=== PATIENT | female | born 1995 | race Caucasian/White ===

== ENCOUNTER 2017-11-06 11:11 | Inpatient (IN) | payer BC ==
[2017-11-06] MEDS ORDERED: Metoclopramide 10 MG/2 ML SDV IVPUSH ONE (11:49)
[2017-11-06] MEDS ORDERED: ceFAZolin 2 GM in Premix Bag 1 BAG IV ONE (11:49)
[2017-11-06] MEDS ORDERED: Sodium Chloride 0.9% 10 ML Syringe FLUSH PRN (11:49)
[2017-11-06] MEDS ORDERED: Citric Acid/Sodium Citrate Solution 30 ML Cup PO ONE (11:49)
[2017-11-06] MEDS ORDERED: Oxytocin/Lactated Ringers 10 UNIT/1,000 ML BAG IV SCH (12:00)
--- NOTE | 2017-11-06 13:51 | PCM.PREANE ---
Preanesthetic Assessment - Anesthesia/Transfusion/Family Hx Anesthesia History: Prior Anesthesia Without Reaction Family History of Anesthesia Reaction: No Transfusion History: No Prior Transfusion(s) - Review of Systems General: Fatigue Pulmonary: No Symptoms Cardiovascular: Dyspnea on Exertion Gastrointestinal: No Symptoms Neurological: No Symptoms Other: Reports: None - Physical Assessment NPO Status Date: 11/06/17 NPO Status Time: 06:00 Pulse: 91 O2 Sat by Pulse Oximetry: 97 Respiratory Rate: 14 Blood Pressure: 121/58 Temperature: 36.3 C Height: 1.63 m Weight: 78.834 kg ASA Class: 2 Mental Status: Alert & Oriented x3 Airway Class: Mallampati = 1 Dentition: Reports: Normal Dentition Thyro-Mental Finger Breadths: 3 Mouth Opening Finger Breadths: 3 ROM/Head Extension: Full Lungs: Clear to Auscultation, Normal Respiratory Effort Cardiovascular: Regular Rate, Regular Rhythm, No Murmurs - Lab Values: Laboratory Last Values WBC 12.49 K/mm3 (3.98-10.04) H 11/06/17 12:10 RBC 4.13 M/mm3 (3.98-5.22) 11/06/17 12:10 Hgb 9.8 gm/L (11.2-15.7) L 11/06/17 12:10 Hct 31.3 % (34.1-44.9) L 11/06/17 12:10 MCV 75.8 fl (79.4-94.8) L 11/06/17 12:10 MCH 23.7 pg (25.6-32.2) L 11/06/17 12:10 MCHC 31.3 g/dl (32.2-35.5) L 11/06/17 12:10 RDW Std Deviation 42.6 fL (36.4-46.3) 11/06/17 12:10 Plt Count 221 K/mm3 (182-369) 11/06/17 12:10 MPV 9.8 fl (9.4-12.3) 11/06/17 12:10 Neut % (Auto) 76.7 % (34.0-71.1) H 11/06/17 12:10 Lymph % (Auto) 16.1 % (19.3-51.7) L 11/06/17 12:10 [place] % (Auto) 5.6 % (4.7-12.5) 11/06/17 12:10 Eos % (Auto) 0.4 (0.7-5.8) L 11/06/17 12:10 Baso % (Auto) 0.2 % (0.1-1.2) 11/06/17 12:10 Neut # (Auto) 9.58 K/mm3 (1.56-6.13) H 11/06/17 12:10 Lymph # (Auto) 2.01 K/mm3 (1.18-3.74) 11/06/17 12:10 [place] # (Auto) 0.70 K/mm3 (0.24-0.36) H 11/06/17 12:10 Eos # (Auto) 0.05 K/mm3 (0.04-0.36) 11/06/17 12:10 Baso # (Auto) 0.03 K/mm3 (0.01-0.08) 11/06/17 12:10 Manual Slide Review Abnormal smear 11/06/17 12:10 Blood Type O POSITIVE 11/06/17 12:10 Gel Antibody Screen Negative 11/06/17 12:10 - Allergies Allergies/Adverse Reactions: Allergies Allergy/AdvReac Type Severity Reaction Status Date / Time fexofenadine [From Lexis] Allergy Rash Verified 10/22/17 20:28 - Anesthesia Plan Pre-Op Medication Ordered: Antacids - Acknowledgements Anesthesia Type Planned: Spinal Pt an Appropriate Candidate for the Planned Anesthesia: Yes Alternatives and Risks of Anesthesia Discussed w Pt/Guardian: Yes Pt/Guardian Understands and Agrees with Anesthesia Plan: Yes PreAnesthesia Questionnaire Respiratory History: Reports: Asthma Gastrointestinal History: Reports: GERD NURSE SPECIALIST History: Reports: - Past Surgical History HEENT Surgical History: Reports: Oral Surgery Female Surgical History: Reports: Section - CURRENT (IN HOUSE) MEDS Current Meds: Current Medications Lactated Ringer's (Ringers, Lactated) 1,000 mls @ 125 mls/hr IV ASDIRECTED ROSA Oxytocin/Lactated Ringer's (Pitocin In Lr 10 Units/1,000 Ml) 10 unit in 1,000 mls @ 100 mls/hr IV ASDIRECTED ROSA Sodium Chloride (Saline Flush) 10 ml FLUSH ASDIRECTED PRN PRN Reason: Keep Vein Open Discontinued Medications Citric Acid/Sodium Citrate (Bicitra Solution) 30 ml PO ONETIME ONE Stop: 11/06/17 11:50 Cefazolin Sodium/Dextrose 2 gm (/ Premix) 50 mls @ 100 mls/hr IV ONETIME ONE Stop: 11/06/17 12:18 Metoclopramide HCl (Reglan) 10 mg IVPUSH ONETIME ONE Stop: 11/06/17 11:50
[2017-11-06] MEDS ORDERED: ceFAZolin 1 GM Vial ONE (14:01)
[2017-11-06] MEDS ORDERED: Phenylephrine 1% 10 MG/ML SDV ONE (14:01)
[2017-11-06] MEDS ORDERED: Morphine PF 10 MG/10 ML SDV ONE (14:01)
[2017-11-06] MEDS ORDERED: Metoclopramide 10 MG/2 ML SDV ONE (14:40)
[2017-11-06] MEDS ORDERED: Citric Acid/Sodium Citrate Solution 30 ML Cup ONE (14:41)
[2017-11-06] MEDS: Lactated Ringers 1,000 ML IV SCH ×4 (14:56→21:09)
[2017-11-06] MEDS ORDERED: Bupivacaine 0.5% 30 ML SDV ONE (15:48)
--- NOTE | 2017-11-06 16:42 | PCM.SN ---
- Free Text/Narrative Note: 1632 Patient is a at 37 5/7 wks. Assuming care from Dr. Lala. Patient with history of vaginal delivery in 1st after IOL for gestational HTN. Had a with her 2nd after FTP in 2nd stage and also gestational HTN. Was seen in clinic today with elevated BP's noted. Sent to L& D and initially had planned on moving towards RLTCS, but began laboring and is now 4 cm. Elected for TOLAC. AROM done by Dr. Lala. Will continue present management. Pain control per patient preference. Anticipate Sravani Johnston MD
--- NOTE | 2017-11-06 19:46 | PCM.SN ---
- Free Text/Narrative Note: 1944 In to assess patient. Patient disheartened that on last nursing check about an hour ago was still only 4 cm. Similar to exam when AROM occurred at 1615. She is very uncomfortable with contractions and does not want to labor throughout the night. Checked patient myself and found her to be 5 cm and about 0 station (previous 4 cm and -1). Reviewed I think she is making very good change at this point. Would encourage her to receive an epidural now if she is planning as seems to be in active labor. Patient also does question if we should just move on to a . Again her reasoning for this is that she does not want to be in labor a long time. Asked patient to maybe receive her epidural first and then I could check her afterwards. Can make further plans at that time. She agrees. Sravani Johnston MD
[2017-11-06] MEDS ORDERED: ePHEDrine 50 MG/ML SDV IVPUSH PRN (19:55)
[2017-11-06] MEDS ORDERED: fentaNYL 100 MCG/2 ML SDV EPIDUR PRN (19:55)
[2017-11-06] MEDS ORDERED: diphenhydrAMINE 50 MG/ML SDV IVPUSH PRN (19:55)
[2017-11-06] MEDS ORDERED: Bupivacaine/fentaNYL/NS 100 ML Bag EPIDUR SCH (20:00)
--- NOTE | 2017-11-06 20:34 | PCM.PNLD ---
Labor Progress Note - VS & Meds Vital Signs: Last Vital Signs Temp 36.3 C 11/06/17 13:51 Pulse 91 11/06/17 13:51 Resp 14 11/06/17 13:51 BP 121/58 L 11/06/17 13:51 Pulse Ox 97 11/06/17 13:51 Active Medications: Current Medications Diphenhydramine HCl (Benadryl) 25 mg IVPUSH Q6H PRN PRN Reason: Itching Ephedrine Sulfate (Ephedrine Sulfate) 5 mg IVPUSH ASDIRECTED PRN PRN Reason: HYPOTENTSION Fentanyl (Sublimaze) 100 mcg EPIDUR Q3H PRN PRN Reason: Pain Last Admin: 11/06/17 20:16 Dose: 100 mcg Fentanyl/Bupivacaine HCl (Fentanyl/Bupivacaine/Ns 2 Mcg-0.125% 100 Ml) 100 ml EPIDUR ASDIRECTED ROSA Last Admin: 11/06/17 20:16 Dose: 100 ml Lactated Ringer's (Ringers, Lactated) 1,000 mls @ 125 mls/hr IV ASDIRECTED ROSA Last Admin: 11/06/17 14:56 Dose: 125 mls/hr Oxytocin/Lactated Ringer's (Pitocin In Lr 10 Units/1,000 Ml) 10 unit in 1,000 mls @ 100 mls/hr IV ASDIRECTED ROSA Sodium Chloride (Saline Flush) 10 ml FLUSH ASDIRECTED PRN PRN Reason: Keep Vein Open Discontinued Medications Bupivacaine HCl (Marcaine 0.5%) Confirm Administered Dose 30 ml .ROUTE .STK-MED ONE Stop: 11/06/17 15:49 Cefazolin Sodium (Ancef) Confirm Administered Dose 2 gm .ROUTE .STK-MED ONE Stop: 11/06/17 14:02 Citric Acid/Sodium Citrate (Bicitra Solution) 30 ml PO ONETIME ONE Stop: 11/06/17 11:50 Last Admin: 11/06/17 15:39 Dose: 30 ml Citric Acid/Sodium Citrate (Bicitra Solution) Confirm Administered Dose 30 ml .ROUTE .STK-MED ONE Stop: 11/06/17 14:42 Last Admin: 11/06/17 17:44 Dose: Not Given Cefazolin Sodium/Dextrose 2 gm (/ Premix) 50 mls @ 100 mls/hr IV ONETIME ONE Stop: 11/06/17 12:18 Last Admin: 11/06/17 17:44 Dose: Not Given Metoclopramide HCl (Reglan) 10 mg IVPUSH ONETIME ONE Stop: 11/06/17 11:50 Last Admin: 11/06/17 15:39 Dose: 10 mg Metoclopramide HCl (Reglan) Confirm Administered Dose 10 mg .ROUTE .STK-MED ONE Stop: 11/06/17 14:41 Last Admin: 11/06/17 17:44 Dose: Not Given Morphine Sulfate (Duramorph Pf) Confirm Administered Dose 10 mg .ROUTE .STK-MED ONE Stop: 11/06/17 14:02 Phenylephrine HCl (Kj-Synephrine) Confirm Administered Dose 10 mg .ROUTE .STK- MED ONE Stop: 11/06/17 14:02 - Uterine Contractions Uterine Monitoring Mode: External [place] Contraction Intensity: Moderate to Strong Uterine Resting Tone: Soft - Monitoring Monitor Mode: External Ultrasound Heart Rate (FHR) Baseline: 130 Heart Rate (FHR) Variability: Moderate (6-25 bmp) Accelerations: Present, 15x15 Decelerations: Early Strip Review: Category I - Vaginal Exam Dilation (cm): 7 Effacement (Percent): 90 Station: 1 Cervical Position: Midposition - Labor Progress (Free Text) Labor Progress: Patient now comfortable with epidural. Made great change in last 1 hr. Now 7 cm. Continue expectant management
[2017-11-06] MEDS ORDERED: Calcium Carbonate 500 MG Tab.Chew PO ONE (23:43)
[2017-11-07] MEDS ORDERED: Misoprostol 200 MCG Tab ONE (00:31)
[2017-11-07] MEDS ORDERED: Carboprost Tromethamine 250 MCG/1 ML Amp ONE (00:36)
[2017-11-07] MEDS ORDERED: Carboprost Tromethamine 250 MCG/1 ML Amp IM ONE (00:53)
[2017-11-07] MEDS ORDERED: Misoprostol 200 MCG Tab PO STA (00:53)
--- NOTE | 2017-11-07 01:05 | PCM.DEL ---
L & D Note - General Info Date of Service: 11/07/17 - Delivery Note Labor: Spontaneous Delivery Outcome: Livebirth Delivery Method: Spontaneous Vaginal Delivery-Single Delivery Mode: Spontaneous Presentation: Right Occiput Anterior (YANIV) Nuchal Cord: None Anesthesia Type: Epidural Amniotic Fluid Description: Clear Episiotomy Type: None Laceration: None Placenta: Intact, Spontaneous Cord: 3 Vessels Estimated Blood Loss: 600 Resuscitation Needed: Yes [place]: Bulb Syringe, Stimulated, Warmed, [place] Used Score 1 min: 8 Score 5 min: 9 Delivery Comments (Free Text/Narrative):: Patient found to be complete and began pushing. With maternal pushing effort head delivered from an YANIV presentation. No nuchal cord present. With gentle downward traction the shoulders and body delivered. placed on maternal abdomen. Cord clamped and cut. Cord blood obtained. Placenta allowed time to separate and expelled intact. Patient with poor tone to the RAUL at this time and so given 600 mcg of buccal cytotec. Some improvement with this, but still with times of increased flow/clot. Manual exploration done of RAUL and given dose of IM hemabate. Bleeding did seem to respond to those interventions. No lacerations noted. - General Info Date of Service: 11/07/17 - Patient Data Vitals - Most Recent: Last Vital Signs Temp 36.3 C 11/06/17 13:51 Pulse 91 11/06/17 13:51 Resp 14 11/06/17 13:51 BP 121/58 L 11/06/17 13:51 Pulse Ox 97 11/06/17 13:51 Weight - Most Recent: 78.834 kg I&O - Last 24 Hours: Intake & Output 11/06/17 11/06/17 11/07/17 14:59 22:59 06:59 Intake Total 1000 Balance 1000 Lab Results Last 24 Hours: Laboratory Results - last 24 hr 11/06/17 11/06/17 Range/Units 12:10 12:10 WBC 12.49 H (3.98-10.04) K/mm3 RBC 4.13 (3.98-5.22) M/mm3 Hgb 9.8 L (11.2-15.7) gm/L Hct 31.3 L (34.1-44.9) % MCV 75.8 L (79.4-94.8) fl MCH 23.7 L (25.6-32.2) pg MCHC 31.3 L (32.2-35.5) g/dl RDW Std Deviation 42.6 (36.4-46.3) fL Plt Count 221 (182-369) K/mm3 MPV 9.8 (9.4-12.3) fl Neut % (Auto) 76.7 H (34.0-71.1) % Lymph % (Auto) 16.1 L (19.3-51.7) % [place] % (Auto) 5.6 (4.7-12.5) % Eos % (Auto) 0.4 L (0.7-5.8) Baso % (Auto) 0.2 (0.1-1.2) % Neut # (Auto) 9.58 H (1.56-6.13) K/mm3 Lymph # (Auto) 2.01 (1.18-3.74) K/mm3 [place] # (Auto) 0.70 H (0.24-0.36) K/mm3 Eos # (Auto) 0.05 (0.04-0.36) K/mm3 Baso # (Auto) 0.03 (0.01-0.08) K/mm3 Manual Slide Review Abnormal smear Blood Type O POSITIVE Gel Antibody Screen Negative Med Orders - Current: Current Medications Diphenhydramine HCl (Benadryl) 25 mg IVPUSH Q6H PRN PRN Reason: Itching Ephedrine Sulfate (Ephedrine Sulfate) 5 mg IVPUSH ASDIRECTED PRN PRN Reason: HYPOTENTSION Fentanyl (Sublimaze) 100 mcg EPIDUR Q3H PRN PRN Reason: Pain Last Admin: 11/06/17 20:16 Dose: 100 mcg Fentanyl/Bupivacaine HCl (Fentanyl/Bupivacaine/Ns 2 Mcg-0.125% 100 Ml) 100 ml EPIDUR ASDIRECTED ROSA Last Admin: 11/06/17 20:16 Dose: 100 ml Lactated Ringer's (Ringers, Lactated) 1,000 mls @ 125 mls/hr IV ASDIRECTED ROSA Last Admin: 11/06/17 21:09 Dose: 125 mls/hr Oxytocin/Lactated Ringer's (Pitocin In Lr 10 Units/1,000 Ml) 10 unit in 1,000 mls @ 100 mls/hr IV ASDIRECTED ROSA Sodium Chloride (Saline Flush) 10 ml FLUSH ASDIRECTED PRN PRN Reason: Keep Vein Open Discontinued Medications Bupivacaine HCl (Marcaine 0.5%) Confirm Administered Dose 30 ml .ROUTE .STK-MED ONE Stop: 11/06/17 15:49 Calcium Carbonate/Glycine (Tums) 1,000 mg PO ONETIME ONE Stop: 11/06/17 23:44 Carboprost Tromethamine (Hemabate Ds) Confirm Administered Dose 250 mcg .ROUTE .STK-MED ONE Stop: 11/07/17 00:37 Carboprost Tromethamine (Hemabate Ds) 250 mcg IM ONETIME ONE Stop: 11/07/17 00:54 Cefazolin Sodium (Ancef) Confirm Administered Dose 2 gm .ROUTE .STK-MED ONE Stop: 11/06/17 14:02 Citric Acid/Sodium Citrate (Bicitra Solution) 30 ml PO ONETIME ONE Stop: 11/06/17 11:50 Last Admin: 11/06/17 15:39 Dose: 30 ml Citric Acid/Sodium Citrate (Bicitra Solution) Confirm Administered Dose 30 ml .ROUTE .STK-MED ONE Stop: 11/06/17 14:42 Last Admin: 11/06/17 17:44 Dose: Not Given Cefazolin Sodium/Dextrose 2 gm (/ Premix) 50 mls @ 100 mls/hr IV ONETIME ONE Stop: 11/06/17 12:18 Last Admin: 11/06/17 17:44 Dose: Not Given Metoclopramide HCl (Reglan) 10 mg IVPUSH ONETIME ONE Stop: 11/06/17 11:50 Last Admin: 11/06/17 15:39 Dose: 10 mg Metoclopramide HCl (Reglan) Confirm Administered Dose 10 mg .ROUTE .STK-MED ONE Stop: 11/06/17 14:41 Last Admin: 11/06/17 17:44 Dose: Not Given Misoprostol (Cytotec) Confirm Administered Dose 200 mcg .ROUTE .STK-MED ONE Stop: 11/07/17 00:32 Misoprostol (Cytotec) 600 mcg PO NOW STA Stop: 11/07/17 00:54 Morphine Sulfate (Duramorph Pf) Confirm Administered Dose 10 mg .ROUTE .STK-MED ONE Stop: 11/06/17 14:02 Phenylephrine HCl (Kj-Synephrine) Confirm Administered Dose 10 mg .ROUTE .STK- MED ONE Stop: 11/06/17 14:02 - Problem List & Annotations (1) 38 weeks gestation of SNOMED Code(s): 81446319 Code(s): Z3A.38 - 38 WEEKS GESTATION OF Status: Acute Current Visit: Yes (2) Gestational hypertension SNOMED Code(s): 33293568 Code(s): O13.9 - GESTATIONAL HTN W/O SIGNIFICANT PROTEINURIA, UNSP TRIMESTER Status: Acute Current Visit: Yes Qualifiers: Trimester: third trimester Qualified Code(s): O13.3 - Gestational [ -induced] hypertension without significant proteinuria, third trimester (3) History of SNOMED Code(s): 033438180 Code(s): Z98.891 - HISTORY OF UTERINE SCAR FROM PREVIOUS SURGERY Status: Acute Current Visit: Yes (4) , delivered, current hospitalization SNOMED Code(s): 449365272 Code(s): O34.219 - MATERNAL CARE FOR UNSP TYPE SCAR FROM PREVIOUS DEL Status: Acute Current Visit: Yes - Problem List Review Problem List Initiated/Reviewed/Updated: Yes - My Orders Last 24 Hours: My Active Orders 11/07/17 00:54 Patient Status Manage Transfer [TRANSFER] Routine - Assessment Assessment:: PPD#0 from after spontaneous labor and findings of gestational HTN - Plan Plan:: * Routine cares * Encourage breast feeding * Will consider CBC in AM if patient symptomatic * Discharge home in 1-2 days
[2017-11-07] MEDS ORDERED: Witch Hazel Medicated Pads 100/Jar TOP PRN (01:15)
[2017-11-07] MEDS ORDERED: Benzocaine/Menthol 20%-0.5% Spray 56 GM Canister TOP PRN (01:15)
[2017-11-07] MEDS ORDERED: Docusate Sodium 100 MG Cap PO PRN (01:15)
[2017-11-07] MEDS ORDERED: Lanolin 100% Cream 7 GM Tube TOP PRN (01:15)
[2017-11-07] MEDS ORDERED: Acetaminophen 325 MG Tab PO PRN (01:15)
[2017-11-07] MEDS ORDERED: Atropine/Diphenoxylate 0.025-2.5 MG Tab PO ONE (01:16)
[2017-11-07] MEDS: Ibuprofen 600 MG Tab PO PRN ×2 (01:35→18:40)
[2017-11-07] MEDS ORDERED: Ondansetron 4 MG/2 ML SDV IVPUSH PRN (05:23)
--- NOTE | 2017-11-07 09:20 | PCM48HPAN ---
Post Anesthesia Note - EVALUATION WITHIN 48HRS OF ANESTHETIC Vital Signs in Normal Range: Yes Patient Participated in Evaluation: Yes Respiratory Function Stable: Yes Airway Patent: Yes Cardiovascular Function Stable: Yes Hydration Status Stable: Yes Pain Control Satisfactory: Yes Nausea and Vomiting Control Satisfactory: Yes Mental Status Recovered: Yes Pulse Rate: 93 Resp Rate: 15 Temperature: 36.9 C Blood Pressure: 135/77
[2017-11-07] MEDS ORDERED: Measles, Mumps & Rubella Vaccine 0.5 ML SDV SUBCUT ONE (14:51)
--- NOTE | 2017-11-07 21:57 | PCM.DCSUM1 ---
Discharge Summary - Discharge Data Discharge Date: 11/07/17 Discharge Disposition: Home, Self-Care 01 Condition: Good - Discharge Diagnosis/Problem(s) (1) 38 weeks gestation of SNOMED Code(s): 36750991 ICD Code: Z3A.38 - 38 WEEKS GESTATION OF Status: Acute (2) Gestational hypertension SNOMED Code(s): 10935694 ICD Code: O13.9 - GESTATIONAL HTN W/O SIGNIFICANT PROTEINURIA, UNSP TRIMESTER Status: Acute Qualifiers: Trimester: third trimester Qualified Code(s): O13.3 - Gestational [ -induced] hypertension without significant proteinuria, third trimester (3) History of SNOMED Code(s): 341247119 ICD Code: Z98.891 - HISTORY OF UTERINE SCAR FROM PREVIOUS SURGERY Status: Acute (4) , delivered, current hospitalization SNOMED Code(s): 649399077 ICD Code: O34.219 - MATERNAL CARE FOR UNSP TYPE SCAR FROM PREVIOUS DEL Status: Acute - Patient Summary/Data Complications: None Consults: None Recommended Follow-up Testing/Procedures: Follow up in 3-6 weeks for check Hospital Course: Patient is a 22 y/o admitted at 37 5/7 wks for gestational HTN. Was laboring at time of admission and desires a TOLAC. She progressed well with AROM only and achieved complete dilation. Underwent an uncomplicated . See delivery note. she did well and desired discharge home on PPD#0 - Patient Instructions Diet: Regular Diet as Tolerated Activity: As Tolerated Activity, Other: pelvic rest for 6 weeks Driving: May Drive Today Showering/Bathing: May Shower Showering/Bathing, Other: May bathe Notify Provider of: Fever, Increased Pain, Swelling and Redness, Drainage, Nausea and/or Vomiting - Discharge Plan *PRESCRIPTION DRUG MONITORING PROGRAM REVIEWED*: Not Applicable *COPY OF PRESCRIPTION DRUG MONITORING REPORT IN PATIENT NINI: Not Applicable Home Medications: Home Meds Iir313/FA/Omega3/Dha/Fish Oil [ Gummies] 2 tab PO DAILY 11/06/17 [ History] Docusate Sodium [Colace] 100 mg PO BID PRN cap 11/07/17 [Rx] Ibuprofen [Motrin] 600 mg PO Q6H PRN tablet 11/07/17 [Rx] Patient Handouts: Vaginal After Delivery, Home Care Instructions for Mom, Vaginal Delivery, Care After Referrals: Aissatou Lala MD [Primary Care Provider] - (3-6 weeks for check ) - Discharge Summary/Plan Comment DC Time >30 min.: No - Patient Data Vitals - Most Recent: Last Vital Signs Temp 36.9 C 11/07/17 09:20 Pulse 93 11/07/17 09:20 Resp 15 11/07/17 09:20 BP 135/77 11/07/17 09:20 Pulse Ox 98 11/07/17 09:11 Weight - Most Recent: 78.834 kg I&O - Last 24 hours: Intake & Output 11/07/17 11/07/17 11/07/17 06:59 14:59 22:59 Intake Total 3000 360 Balance 3000 360 Lab Results - Last 24 hrs: Laboratory Results - last 24 hr 11/06/17 11/07/17 Range/Units 12:10 10:35 WBC 11.35 H (3.98-10.04) K/mm3 RBC 3.49 L (3.98-5.22) M/mm3 Hgb 8.2 L (11.2-15.7) gm/L Hct 26.6 L (34.1-44.9) % MCV 76.2 L (79.4-94.8) fl MCH 23.5 L (25.6-32.2) pg MCHC 30.8 L (32.2-35.5) g/dl RDW Std Deviation 42.5 (36.4-46.3) fL Plt Count 202 (182-369) K/mm3 MPV 9.5 (9.4-12.3) fl RPR Non-reactive (NONREACTIVE) Med Orders - Current: Current Medications Acetaminophen (Tylenol) 650 mg PO Q4H PRN PRN Reason: mild pain or fever Last Admin: 11/07/17 01:36 Dose: 650 mg Benzocaine/Menthol (Dermoplast Pain Relief [place]) 0 gm TOP ASDIRECTED PRN PRN Reason: Perineal Comfort Measure Last Admin: 11/07/17 02:25 Dose: 1 canister Docusate Sodium (Colace) 100 mg PO BID PRN PRN Reason: Constipation Emollient Ointment (Lansinoh Hpa) 0 gm TOP ASDIRECTED PRN PRN Reason: Sore Nipples Ibuprofen (Motrin) 600 mg PO Q6H PRN PRN Reason: Mild pain or fever Last Admin: 11/07/17 18:40 Dose: 600 mg Ondansetron HCl (Zofran) 4 mg IVPUSH Q8H PRN PRN Reason: Nausea Last Admin: 11/07/17 05:36 Dose: 4 mg Witch Alejandra (Tucks) 1 pad TOP ASDIRECTED PRN PRN Reason: Hemorrhoid pain Last Admin: 11/07/17 02:24 Dose: 1 canister Discontinued Medications Bupivacaine HCl (Marcaine 0.5%) Confirm Administered Dose 30 ml .ROUTE .STK-MED ONE Stop: 11/06/17 15:49 Calcium Carbonate/Glycine (Tums) 1,000 mg PO ONETIME ONE Stop: 11/06/17 23:44 Carboprost Tromethamine (Hemabate Ds) Confirm Administered Dose 250 mcg .ROUTE .STK-MED ONE Stop: 11/07/17 00:37 Carboprost Tromethamine (Hemabate Ds) 250 mcg IM ONETIME ONE Stop: 11/07/17 00:54 Last Admin: 11/07/17 00:38 Dose: 250 mcg Cefazolin Sodium (Ancef) Confirm Administered Dose 2 gm .ROUTE .STK-MED ONE Stop: 11/06/17 14:02 Citric Acid/Sodium Citrate (Bicitra Solution) 30 ml PO ONETIME ONE Stop: 11/06/17 11:50 Last Admin: 11/06/17 15:39 Dose: 30 ml Citric Acid/Sodium Citrate (Bicitra Solution) Confirm Administered Dose 30 ml .ROUTE .STK-MED ONE Stop: 11/06/17 14:42 Last Admin: 11/06/17 17:44 Dose: Not Given Diphenhydramine HCl (Benadryl) 25 mg IVPUSH Q6H PRN PRN Reason: Itching Diphenoxylate HCl/Atropine (Lomotil 0.025-2.5 Mg) 1 tab PO ONETIME ONE Stop: 11/07/17 01:17 Last Admin: 11/07/17 01:34 Dose: 1 tab Ephedrine Sulfate (Ephedrine Sulfate) 5 mg IVPUSH ASDIRECTED PRN PRN Reason: HYPOTENTSION Fentanyl (Sublimaze) 100 mcg EPIDUR Q3H PRN PRN Reason: Pain Last Admin: 11/06/17 20:16 Dose: 100 mcg Fentanyl/Bupivacaine HCl (Fentanyl/Bupivacaine/Ns 2 Mcg-0.125% 100 Ml) 100 ml EPIDUR ASDIRECTED [facility] Last Admin: 11/06/17 20:16 Dose: 100 ml Cefazolin Sodium/Dextrose 2 gm (/ Premix) 50 mls @ 100 mls/hr IV ONETIME ONE Stop: 11/06/17 12:18 Last Admin: 11/06/17 17:44 Dose: Not Given Lactated Ringer's (Ringers, Lactated) 1,000 mls @ 125 mls/hr IV ASDIRECTED [facility] Last Admin: 11/06/17 21:09 Dose: 125 mls/hr Oxytocin/Lactated Ringer's (Pitocin In Lr 10 Units/1,000 Ml) 10 unit in 1,000 mls @ 100 mls/hr IV ASDIRECTED [facility] Last Admin: 11/07/17 00:15 Dose: 999 mls/hr Measles/Mumps/Rubella Vaccine Live (M-M-R Ii Vaccine) 0.5 ml SUBCUT .ONCE ONE Stop: 11/07/17 14:52 Last Admin: 11/07/17 16:40 Dose: 0.5 ml Metoclopramide HCl (Reglan) 10 mg IVPUSH ONETIME ONE Stop: 11/06/17 11:50 Last Admin: 11/06/17 15:39 Dose: 10 mg Metoclopramide HCl (Reglan) Confirm Administered Dose 10 mg .ROUTE .STK-MED ONE Stop: 11/06/17 14:41 Last Admin: 11/06/17 17:44 Dose: Not Given Misoprostol (Cytotec) Confirm Administered Dose 200 mcg .ROUTE .STK-MED ONE Stop: 11/07/17 00:32 Misoprostol (Cytotec) 600 mcg PO NOW STA Stop: 11/07/17 00:54 Last Admin: 11/07/17 00:30 Dose: 600 mcg Morphine Sulfate (Duramorph Pf) Confirm Administered Dose 10 mg .ROUTE .STK-MED ONE Stop: 11/06/17 14:02 Phenylephrine HCl (Kj-Synephrine) Confirm Administered Dose 10 mg .ROUTE .STK- MED ONE Stop: 07/13/18 14:02 Sodium Chloride (Saline Flush) 10 ml FLUSH ASDIRECTED PRN PRN Reason: Keep Vein Open
== END 2017-11-07 23:55 | disposition home or self-care (01) | DRG 560 ==
LOC: JD.OBCHECK 11:11 → JD.OB 11:49 → UNDOADMIN 11:49 → OBSVTOIN 11-07 00:13 → UNDODISIN 11-07 23:55
PROVIDERS: ADMIT Obstetrics & Gynecology; ATTEND Obstetrics & Gynecology
PROC: 10907ZC Drainage of Amniotic Fluid, Therapeutic from Products of Conception, Via Natural or Artificial Opening (ICD-10-PCS; 2017-11-06)
PROC: 00HU33Z Insertion of Infusion Device into Spinal Canal, Percutaneous Approach (ICD-10-PCS; 2017-11-06)
PROC: 3E0R3BZ Introduction of Anesthetic Agent into Spinal Canal, Percutaneous Approach (ICD-10-PCS; 2017-11-06)
PROC: 10E0XZZ Delivery of Products of Conception, External Approach (ICD-10-PCS; principal; 2017-11-07)
PROC: 0UC97ZZ Extirpation of Matter from Uterus, Via Natural or Artificial Opening (ICD-10-PCS; 2017-11-07)
PROC: 6A550ZT Pheresis of Cord Blood Stem Cells, Single (ICD-10-PCS; 2017-11-07)
DX: O13.4 Gestational [pregnancy-induced] hypertension without significant proteinuria, complicating childbirth (principal); O34.211 Maternal care for low transverse scar from previous cesarean delivery; N85.8 Other specified noninflammatory disorders of uterus; Z3A.38 38 weeks gestation of pregnancy; Z37.0 Single live birth; O72.1 Other immediate postpartum hemorrhage
CPT/HCPCS: 36415; 51701; 51702; 59025; 59409; 85025; 85027; 86592; 86850; 86900; 86901; 90707; A9270-GY; G0010; J0690; J2270; J2370; J2405; J2590; J2765; J3010; J7120